=== PATIENT | male | born 1985 | race African-American/Black ===

== ENCOUNTER 2021-03-25 18:42 | Emergency (ER) | payer OTHER, SELFPAY ==
--- NOTE | ~2021-03-25 | CT_ITS ---
Indication: Fall EXAMINATION: CT brain, CT cervical spine. Axial imaging with coronal and sagittal reformatted images. Radiation dose [address] brain; Axial imaging with coronal and sagittal reformatted images. The solorio-white matter is within normal limits. There is no midline shift or mass effect or hemorrhage. The basilar cisterns appear patent. The posterior fossa is grossly within normal limits. No fracture on the bone windows. CT cervical spine; Limitation from body habitus and artifact. No fracture or dislocation is seen. CT/CT head/brain wo con IMPRESSION: Negative acute noncontrast CT of the brain. No fracture or dislocation of the cervical spine.
--- NOTE | ~2021-03-25 | CT_ITS ---
Indication: Fall EXAMINATION: CT brain, CT cervical spine. Axial imaging with coronal and sagittal reformatted images. Radiation dose [address] brain; Axial imaging with coronal and sagittal reformatted images. The solorio-white matter is within normal limits. There is no midline shift or mass effect or hemorrhage. The basilar cisterns appear patent. The posterior fossa is grossly within normal limits. No fracture on the bone windows. CT cervical spine; Limitation from body habitus and artifact. No fracture or dislocation is seen. CT/CT cervical spine wo con IMPRESSION: Negative acute noncontrast CT of the brain. No fracture or dislocation of the cervical spine.
[2021-03-25 19:25] VITALS: BP 139/72; PULSE 75; RESP 18; TEMP 36.2; O2SAT 94; BMI 39.8
--- NOTE | 2021-03-25 21:15 | ED.GENADULT ---
HPI - General Adult General Chief complaint: Fall Stated complaint: Fell on head Time Seen by Provider: 03/25/21 20:07 Source: patient Mode of arrival: ambulatory Limitations: no limitations History of Present Illness HPI narrative: Patient presents to ED for headache after falling and hitting tub. Patient states he was showering & slipped and hit his head on the tub while falling to the ground. Patient does not remember if he passed out but does states he remember waking up. He denies feeling dizzy, having any chest pain, or headache, or abdominal pain before falling. Patient states he was in the shower and slipped. Related Data Previous Rx's Medication Instructions Recorded naproxen 500 mg tablet 500 mg PO BID PRN #20 tab 03/25/21 Allergies Allergy/AdvReac Type Severity Reaction Status Date / Time shellfish derived Allergy Anaphylaxis Verified 03/25/21 19:32 Review of Systems Constitutional: Constitutional: Reports as per HPI, Reports no additional constitutional complaints and Reports headache(s) Eyes: Eyes: Reports as per HPI and Reports no additional eye complaints ENT: Reports system reviewed and no additional complaints, except as documented, Reports as per HPI and Reports headache(s) Cardiovascular: Cardiovascular: Reports as per HPI and Reports no additional cardiovascular complaints Respiratory: Respiratory: Reports as per HPI and Reports no additional respiratory complaints Gastrointestinal: Gastrointestinal: Reports as per HPI and Reports no additional gastrointestinal complaints Genitourinary: Genitourinary: Reports no additional male genitourinary complaints and Reports as per HPI Musculoskeletal: Musculoskeletal: Reports no additional musculoskeletal complaints and Reports as per HPI Integumentary/Breasts: Skin/Breast: Reports system reviewed and no additional complaints, except as docu and Reports as per HPI Neurologic: Reports system reviewed and no additional complaints, except as documented, Reports as per HPI and Reports headache(s) Psychiatric: Psychiatric: Reports no additional psychiatric complaints and Reports as per HPI [facility] Past Medical History Medical History (Updated 03/25/21 @ 21:19 by TRIXIE Benito) Asthma Pre-diabetes Social History Social History Advance Directives: No Advance Directives Information Provided: Yes Physical Exam Vital Signs: Vital Signs: Last Vital Signs Temp 97.2 F 03/25/21 19:25 Pulse 75 03/25/21 19:25 Resp 18 03/25/21 19:25 BP 139/72 03/25/21 19:25 Pulse Ox 94 03/25/21 19:25 Body Mass Index 39.8 Const: General: cooperative, healthy appearing, comfortable, no acute distress, well developed, alert, awake and Physically active Orientation/consciousness: patient oriented x3 HENMT: Head: Yes normal to inspection, Yes No palpable skull fracture present, Yes normocephalic, Yes atraumatic, No Acrocyanosis present, No Lorenzo's sign, No cranial bruits, No hematoma, No laceration, No raccoon eyes, No scalp lesion, Yes scalp tenderness (Right parietal), No Temporal artery tenderness present and No periorbital ecchymosis Eyes: General: appearance normal, both eyes and all related structures Neck: Neck: Yes normal visual inspection, Yes full ROM, Yes no lymphadenopathy, Yes no meningeal signs, Yes trachea midline, Yes supple and Yes tender Chest: Chest palpation & inspection: normal inspection of the chest and normal palpation of entire chest wall Resp: Effort & Inspection: normal respiratory effort and able to speak in complete sentences Auscultation: clear to auscultation bilaterally Cardio: Jugular venous distension: no JVD Heart sounds: S1 normal heart sound present and S2 normal heart sound present GI: Inspection: Yes normal to inspection and No abdominal wall ecchymosis Palpation (GI): Soft to palpation, not firm, nontender, no guarding and not rigid : General: No CVA tenderness and Yes no CVA tenderness Back/Spine/Pelvis: Back: no CVA tenderness, No CVA tenderness and No back tenderness Skin: General skin exam: no rashes or lesions noted and elasticity normal Neuro: General: patient oriented x3, no meningeal signs and CN's II-XI intact bilaterally Cranial nerves: Yes CN's II-XII intact bilaterally Extrem: General: Yes normal to inspection and Yes full ROM Psych: Appearance: grossly normal, well kempt and not disheveled Course Course Course Narrative: Patient recent for imaging. Reevaluation(s) Reevaluation #1: Head CT & cervical spine came back normal. Patient is safe for discharge Time: 21:18 Medical Decision Making MDM Narrative Medical decision making narrative: Fall Discharge Plan Discharge Clinical Impression: Fall Patient Disposition: Home, Self-Care Instructions: Head Injury (ED) Additional Instructions: Return to the ED for any nausea, vomiting, bleeding or clear fluid from ears/nose, dizziness, chest pain, shortness of breath, abdominal pain, rectal bleeding, vomiting blood, or any other concerning symptoms. Please follow up with CPP Prescriptions: New naproxen 500 mg tablet 500 mg PO BID PRN (Reason: pain) Qty: 20 RF: 0 Stand Alone Forms: Work/School Release Interventions: ED Discharge Assessment Last Done: 03/25/21 21:25 Discharge Date/Time: 03/25/21 21:30 Print Language: [place]
== END 2021-03-25 21:30 | disposition home or self-care (01) ==
PROVIDERS: Emergency Provider Emergency Medicine; PCP Internal Medicine
DX: Z04.3 Encounter for examination and observation following other accident (principal); Z91.81 History of falling
CPT/HCPCS: 70450; 72125; 99283; 99284

== ENCOUNTER → 2021-07-15 11:23 | Outpatient (BNVA) | payer OTHER, SELFPAY | PROVIDERS: PCP Internal Medicine; Visit Provider Physician Assistant | DX: S39.012A Strain of muscle, fascia and tendon of lower back, initial encounter (principal); X50.0XXA Overexertion from strenuous movement or load, initial encounter | CPT/HCPCS: 99203 ==

== ENCOUNTER → 2021-07-20 14:17 | Outpatient (BNVA) | payer OTHER, SELFPAY | PROVIDERS: PCP Internal Medicine; Visit Provider Physician Assistant Medical | DX: S33.9XXA Sprain of unspecified parts of lumbar spine and pelvis, initial encounter (principal); X50.0XXA Overexertion from strenuous movement or load, initial encounter | CPT/HCPCS: 72100; 99213 ==

== ENCOUNTER 2021-07-29 12:53 | Outpatient (RCR) | payer OTHER, SELFPAY ==
--- NOTE | 2021-07-29 14:01 | MHC.PT.EP ---
[facility] [place] Office [place] Office [place] Office [address]han [address] [phone] F: [phone] F: [phone] F: [phone] F: [phone] Physical Therapy Plan of Care Date of Evaluation: Date of Surgery: n/a Diagnosis: LS strain with paraspinal spasm Assessment: Patient is a 35 year old R handed male who presents with s/s consistent with lumbar strain. He works with daily job demands including bending, lifting, carrying. Patient past medical history is unremarkable, aside from possible seizure (non-conclusive) 2 years ago. Current impairments include pain, ROM, strength, safety, independence, activity tolerance and functional mobility. Functional limitations include decreased ability to walk, stand, transfer, negotiate stairs, bend, lift, carry, sit, sleep, and perform weight bearing activities.. Patient is motivated with good rehab potential. Skilled PT will address impairments and functional limitations in order to achieve goals. Frequency and Duration: The patient will be seen 2x/week for 5 weeks Short Term Goals: I with HEP - 2 weeks Able to tolerate laying supine and on side - 3 weeks Detention Goals: Oswestry 10% or less - 5 weeks Pain free/safe return to all work duties - 5 weeks AROM rotation 75% and pain free b/l - 4 weeks Treatment Plan: Modalities to reduce pain, spasms and effusion. Manual therapy to restore motion and function. Therapeutic exercise to improve strength and flexibility. Neuromuscular re-education for posture and balance. Therapeutic activities to return to functional activities of daily living. Electronically signed by: Gatito Frank, PT Please sign and return to therapist. Thank you for your referral.
--- NOTE | 2021-12-16 08:18 | MHC.PT.DC ---
[facility] [place] Office [place] Office [place] Office [address] [facility] [phone] F: [phone] F: [phone] F: [phone] F: [phone] Physical Therapy Discharge Report Diagnosis: LS strain with paraspinal spasm Date of Surgery: n/a Date of Evaluation: 07/29/21 Date of Discharge: 07/29/21 Treatments to Date: 1 Cancellations to Date: No Shows to Date: Discharge Status: Patient Elected to Stop Discharge Summary: Pt returned to work and did not return to PT after his evaluation. Patient is a 35 year old R handed male who presents with s/s consistent with lumbar strain. He works with daily job demands including bending, lifting, carrying. Patient past medical history is unremarkable, aside from possible seizure (non-conclusive) 2 years ago. Current impairments include pain, ROM, strength, safety, independence, activity tolerance and functional mobility. Functional limitations include decreased ability to walk, stand, transfer, negotiate stairs, bend, lift, carry, sit, sleep, and perform weight bearing activities.. Patient is motivated with good rehab potential. Skilled PT will address impairments and functional limitations in order to achieve goals. Electronically signed by: Gatito Frank, PT Please sign and return to therapist. Thank you for your referral.
== END 2021-12-16 08:18 | disposition home or self-care (01) ==
LOC: HO.PTCHIC 12:53
PROVIDERS: PCP Internal Medicine; Visit Provider Physician Assistant Medical
DX: M54.50 Low back pain, unspecified (principal); M62.830 Muscle spasm of back
CPT/HCPCS: 97014; 97110; 97161

== ENCOUNTER → 2021-08-03 14:41 | Outpatient (BNVA) | payer OTHER, SELFPAY | PROVIDERS: PCP Internal Medicine; Visit Provider Physician Assistant Medical | DX: S33.9XXA Sprain of unspecified parts of lumbar spine and pelvis, initial encounter (principal); X58.XXXA Exposure to other specified factors, initial encounter | CPT/HCPCS: 99213 ==

== ENCOUNTER → 2021-08-17 09:46 | Outpatient (BNVA) | payer OTHER, SELFPAY | PROVIDERS: PCP Internal Medicine; Visit Provider Physician Assistant Medical | DX: S39.012D Strain of muscle, fascia and tendon of lower back, subsequent encounter (principal); X58.XXXD Exposure to other specified factors, subsequent encounter | CPT/HCPCS: 99213 ==

== ENCOUNTER → 2021-08-27 10:55 | Outpatient (BNVA) | payer OTHER, SELFPAY | PROVIDERS: PCP Internal Medicine; Visit Provider Physician Assistant | DX: S39.012D Strain of muscle, fascia and tendon of lower back, subsequent encounter (principal); X58.XXXD Exposure to other specified factors, subsequent encounter | CPT/HCPCS: 99213 ==

== ENCOUNTER → 2021-09-07 11:21 | Outpatient (BNVA) | payer OTHER, SELFPAY | PROVIDERS: PCP Internal Medicine; Visit Provider Physician Assistant Medical | DX: S39.012D Strain of muscle, fascia and tendon of lower back, subsequent encounter (principal); X58.XXXD Exposure to other specified factors, subsequent encounter | CPT/HCPCS: 99213 ==

== ENCOUNTER 2023-11-11 02:08 | Emergency (ER) | payer BC, SELFPAY ==
--- NOTE | 2023-11-11 | ECG_ITS ---
Test Reason : CHEST PAIN Blood Pressure : / mmHG Vent. Rate : 069 BPM Atrial Rate : 069 BPM P-R Int : 172 ms QRS Dur : 088 ms QT Int : 378 ms P-R-T Axes : 057 077 -01 degrees QTc Int : 405 ms Normal sinus rhythm Abnormal QRS-T angle, consider primary T wave abnormality Abnormal ECG No previous ECGs available Referred By: Generic ED Physician Electronically Signed By:Papito Lynn
--- NOTE | ~2023-11-11 | XR_ITS ---
EXAMINATION: XR CHEST CLINICAL INFORMATION: Chest pain COMPARISON: None available. TECHNIQUE: 2 views of the chest were obtained. FINDINGS: The lungs are clear with no focal consolidation. No evidence of pneumothorax, pulmonary edema, or pleural effusions. The cardiomediastinal silhouette is unremarkable. No acute osseous findings. XR/XR chest 2V IMPRESSION: No acute cardiopulmonary findings.
--- NOTE | 2023-11-11 02:16 | MHC.EDTECH ---
patient ekg taken at 0211 and was read by Provider stacy .
[2023-11-11 02:18] VITALS: BP 150/81; PULSE 73; RESP 18; TEMP 36.8; O2SAT 99; BMI 41.5
[2023-11-11 02:47] LABS: MANUAL DIFF FLAG NO
[2023-11-11 02:48] LABS: Basophils Percent Auto 0.7 % (0-2); Eosinophils Absolute Auto 0.3 X10*3/uL (0.0-0.4); Eosinophils Percent Auto 5.3 % (0-4); Hematocrit 44.2 % (42.0-52.0); Hemoglobin 15.1 g/dl (14.0-18.0); Imm Gran Abs Auto 0.01 X10*3/uL (0.00-0.03); Imm Gran Pct Auto 0.2 % (0.0-0.4); Lymphocytes Absolute Auto 2.1 X10*3/uL (1.2-4.9); Lymphocytes Percent Auto 37.6 % (20-40); Mean Corpuscular HGB Conc 34.2 g/dl (31.0-36.0); Mean Corpuscular Hemoglobin 30.1 pg (27.0-33.0); Mean Corpuscular Volume 88.2 fL (80.0-98.0); Mean Platelet Volume 10.1 fL (9.4-12.4); Monocytes Absolute Auto 0.7 X10*3/uL (0.1-1.2); Monocytes Percent Auto 12.5 % (2-11); Neutrophils Absolute Auto 2.5 x10*3/uL (2.0-8.3); Neutrophils Percent Auto 43.7 % (45-73); Platelet Count 186 X10*3/uL (160-400); Red Blood Count 5.01 X10*6/uL (4.60-5.80); Red Cell Distribution Width 13.5 % (11.0-16.0); White Blood Count 5.7 X10*3/uL (4.8-10.8)
[2023-11-11 03:10] LABS: Alanine Aminotransferase 17 U/L (0-40); Albumin Level 3.7 g/dL (3.5-5.0); Alkaline Phosphatase 52 U/L (39-117); Anion Gap 11 (12-20); Aspartate Amino Transferase 15 U/L (5-37); Bilirubin Total 0.2 mg/dL (0.0-1.0); Blood Urea Nitrogen 18 mg/dL (9-16); Calcium 8.5 mg/dL (8.4-10.2); Carbon Dioxide 21 mmol/L (22-29); Chloride 110 mmol/L (96-108); Creatinine Clr Calc Pharmacy 134.9; Estimated Glomerular Filt Rate > 60; Glucose Random 127 mg/dL (60-115); Potassium 3.5 mmol/L (3.3-5.1); Sodium 138 mmol/L (135-145); Total Protein 6.8 g/dL (6.5-8.0)
[2023-11-11 03:11] LABS: Troponin-I High Sensitivity < 2.7 ng/L (<3.5-35.0)
[2023-11-11 04:32] VITALS: BP 140/75; PULSE 68; RESP 16; TEMP 36.6; O2SAT 97
--- NOTE | 2023-11-11 05:18 | ED_ITS ---
HPI - Chest Pain General Chief Complaint: Chest Pain Stated Complaint: Chest Pain Time Seen by Provider: 11/11/23 05:14 Source: patient Mode of arrival: ambulatory Limitations: no limitations History of Present Illness HPI narrative: Patient comes to the emergency room complaining of bilateral chest pain for couple of days. Patient states that about 2 days ago, patient was working out in the gym, lifting 135 lb overhead repeatedly. Patient denies shortness of breath Related Data Previous Rx's Medication Instructions Recorded naproxen 500 mg tablet 500 mg PO BID PRN pain #20 tabs 03/25/21 Allergies Allergy/AdvReac Type Severity Reaction Status Date / Time shellfish derived Allergy Anaphylaxis Verified 11/11/23 02:18 Review of Systems 2 Review of Systems: Constitutional : No Weight loss, No Fever, No Chills, No Night Sweats, No Fatigue, No Malaise ENT/Mouth : No Hearing loss, No Ear Pain, No Nasal Congestion, No Sinus Pain, No Hoarseness, No sore throat, No Rhinorrhea, No Swallowing Difficulty Eyes: No Eye Pain, No Swelling, No Redness, No Foreign Body, No Discharge, No Vision Changes Cardiovascular : Complaining of chest wall pain, no deep/substernal Chest Pain, No SOB, No Dyspnea on Exertion, No Orthopnea, No Edema, No Palpitations Respiratory : No Cough, No Sputum, No Wheezing, No Smoke Exposure, No Dyspnea Gastrointestinal : No Nausea, No Vomiting, No Diarrhea, No Constipation, No abdominal Pain, No Hematochezia, No Melena Genitourinary : no irregular bleeding, No Dysuria, No Urinary Frequency, No Hematuria, No Urinary Incontinence, No Urgency, No Flank Pain, No Urinary Flow Changes, No Hesitancy Musculoskeletal : No joint pain, No Myalgias, No Joint Swelling Skin : No Skin Lesions, No rash Neuro : No Weakness, No Numbness, No Paresthesias, No Loss of Consciousness, No Dizziness, No Headache Psych : No Anxiety/Panic, No Depression, No SI/HI/AH/VH, No Social Issues, Heme/Lymph: No Bruising, No Bleeding,No Lymphadenopathy Endocrine : No Polyuria, No Polydipsia, No Temperature Intolerance PMFSH Past Medical History Medical History Pre-diabetes Asthma Social History Social History Smoked in Last 30 Days: Yes Use of substances other than those prescribed or required for medical reasons: Yes Substance Use Type: Marijuana Advance Directives: No Advance Directives Information Provided: No Physical Exam 2 Vital Signs: Vital Signs: Last Vital Signs Temp 98 F 11/11/23 04:32 Pulse 68 11/11/23 04:32 Resp 16 11/11/23 04:32 BP 140/75 H 11/11/23 04:32 Pulse Ox 97 11/11/23 04:32 O2 Del Method Room Air 11/11/23 04:32 BMI result Body Mass Index 41.5 Const: Other: Appearance: Alert. Oriented X3. No acute distress. Eyes: Pupils equal, round and reactive to light. ENT: Pharynx normal. Neck: Normal inspection. Neck supple. No lymph nodes noted. No crepitus CVS: Reproducible chest pain to palpation bilaterally, Normal heart rate and rhythm. Pulses normal. Normal S1 and S2 Respiratory: No respiratory distress. Breath sounds normal. No Wheezing. No rales Abdomen: Soft and nontender. No rigidity. No distention. Skin: Skin warm and dry. Normal skin color. Normal skin turgor. Extremities: No lower extremity edema. No Lacerations. No Rash Neuro: Oriented X 3. No motor deficit. No sensory deficit. Moving all extremities. No slurred speech. CN 2 through 12 grossly intact Psych: calm, cooperative, normal affect Medical Decision Making Medical Decision Making [facility] Narrative: -my interpretation of EKG: Normal sinus rhythm, heart rate 69, no ST segment depression or elevation, nonspecific T-wave inversion in lead 3, QTC 405 -my interpretation of labs: Normal hematology chemistry and troponin -my interpretation of chest x-ray: No pneumonia or fractured ribs -I discussed with the patient, source of pain likely musculoskeletal Differential Diagnosis Differential Diagnoses: The differential diagnosis associated with the presentation includes (ACS, musculoskeletal pain, pleurisy) Admission/Observation Consideration of admission/observation: Escalation of care including admission/observation considered (Given patient's symptoms, admission was considered) Lab Data [facility] Lab Attestation statement: I reviewed the patient's lab results. 11/11/23 02:42 11/11/23 02:42 Labs: Lab Results 11/11/23 Range/Units 02:42 WBC 5.7 (4.8-10.8) X10*3/uL RBC 5.01 (4.60-5.80) X10*6/uL Hgb 15.1 (14.0-18.0) g/dl Hct 44.2 (42.0-52.0) % MCV 88.2 (80.0-98.0) fL MCH 30.1 (27.0-33.0) pg MCHC 34.2 (31.0-36.0) g/dl RDW 13.5 (11.0-16.0) % Plt Count 186 (160-400) X10*3/uL MPV 10.1 (9.4-12.4) fL Immature Gran % (Auto) 0.2 (0.0-0.4) % Neut % (Auto) 43.7 L (45-73) % Lymph % (Auto) 37.6 (20-40) % [place] % (Auto) 12.5 H (2-11) % Eos % (Auto) 5.3 H (0-4) % Baso % (Auto) 0.7 (0-2) % Lymph # (Auto) 2.1 (1.2-4.9) X10*3/uL [place] # (Auto) 0.7 (0.1-1.2) X10*3/uL Eos # (Auto) 0.3 (0.0-0.4) X10*3/uL Baso # (Auto) 0.0 (0.0-0.2) X10*3/uL Abs Immat Gran (auto) 0.01 (0.00-0.03) X10*3/uL Absolute Neuts (auto) 2.5 (2.0-8.3) x10*3/uL Absolute Nucleated RBC 0.000 (0.0-0.012) X10*3/uL Nucleated RBC % (auto) 0.0 (0.0-0.2) /100WBC Sodium 138 (135-145) mmol/L Potassium 3.5 (3.3-5.1) mmol/L Chloride 110 H (96-108) mmol/L Carbon Dioxide 21 L (22-29) mmol/L Anion Gap 11 L (12-20) BUN 18 H (9-16) mg/dL Creatinine 0.93 (0.5-1.4) mg/dL Estim Creat Clear Calc 134.9 Estimated GFR > 60 Random Glucose 127 H (60-115) mg/dL Calcium 8.5 (8.4-10.2) mg/dL Total Bilirubin 0.2 (0.0-1.0) mg/dL AST 15 (5-37) U/L ALT 17 (0-40) U/L Alkaline Phosphatase 52 (39-117) U/L Troponin I High Sens < 2.7 (<3.5-35.0) ng/L Total Protein 6.8 (6.5-8.0) g/dL Albumin 3.7 (3.5-5.0) g/dL Independent Interpretation I performed an independent interpretation of an: EKG and Plain X-Ray Radiology Impression Discussion of test interpretation with radiology: I have reviewed the radiologist's reading. Radiologist Impression: FINDINGS: The lungs are clear with no focal consolidation. No evidence of pneumothorax, pulmonary edema, or pleural effusions. The cardiomediastinal silhouette is unremarkable. No acute osseous findings. XR/XR chest 2V IMPRESSION: No acute cardiopulmonary findings. Critical Care Time Critical Care Time Critical Care Time: Yes Total Critical Care Time: 35 Attestation: I have personally provided critical care time. Time includes review of lab data, radiology results, discussion with consultants, and monitoring for potential decompensation. Intervention performed as documented. Discharge Plan Discharge Clinical Impression: Atypical chest pain Patient Disposition: Home, Self-Care Instructions: Chest Pain (ED), Chest Wall Pain (ED) Additional Instructions: Please follow-up with your primary care physician tomorrow. If you have any worsening or new symptoms, please return to the emergency room or call 911 Prescriptions: No Action naproxen 500 mg tablet 500 mg PO BID PRN (Reason: pain) Qty: 20 0RF
[2023-11-11 05:38] VITALS: BP 140/75; PULSE 71; RESP 20; TEMP 36.9; O2SAT 100
== END 2023-11-11 15:14 | disposition home or self-care (01) ==
PROVIDERS: Emergency Provider Emergency Medicine
DX: R07.89 Other chest pain (principal)
CPT/HCPCS: 36415; 71046; 80053; 84484; 85025; 93005; 99283; 99285

== ENCOUNTER → 2023-11-11 02:11 | Outpatient (BNV) | payer BC, SELFPAY | PROVIDERS: Emergency Provider Emergency Medicine; Visit Provider Internal Medicine Cardiovascular Disease | DX: R94.31 Abnormal electrocardiogram [ECG] [EKG] (principal) | CPT/HCPCS: 93010 ==

== ENCOUNTER 2024-02-01 21:30 | Emergency (ER) | payer BC, SELFPAY ==
--- NOTE | 2024-02-01 21:32 | ECG_ITS ---
Test Reason : CHEST PAIN Blood Pressure : / mmHG Vent. Rate : 072 BPM Atrial Rate : 072 BPM P-R Int : 174 ms QRS Dur : 086 ms QT Int : 380 ms P-R-T Axes : 040 073 012 degrees QTc Int : 416 ms Normal sinus rhythm Normal ECG When compared with ECG of 11-NOV-2023 02:11, No significant change was found Referred By: Generic ED Physician Electronically Signed By:Papito Lynn
[2024-02-01 21:33] VITALS: BP 146/85; PULSE 86; RESP 18; TEMP 36.7; O2SAT 98; BMI 41.5
[2024-02-01 22:11] LABS: MANUAL DIFF FLAG NO
[2024-02-01 22:12] LABS: Basophils Percent Auto 0.8 % (0-2); Eosinophils Absolute Auto 0.2 X10*3/uL (0.0-0.4); Eosinophils Percent Auto 3.6 % (0-4); Hematocrit 45.5 % (42.0-52.0); Hemoglobin 15.6 g/dl (14.0-18.0); Imm Gran Abs Auto 0.01 X10*3/uL (0.00-0.03); Imm Gran Pct Auto 0.2 % (0.0-0.4); Lymphocytes Percent Auto 38.9 % (20-40); Mean Corpuscular HGB Conc 34.3 g/dl (31.0-36.0); Mean Corpuscular Volume 87.5 fL (80.0-98.0); Mean Platelet Volume 10.4 fL (9.4-12.4); Monocytes Absolute Auto 0.5 X10*3/uL (0.1-1.2); Monocytes Percent Auto 10.3 % (2-11); Neutrophils Absolute Auto 2.4 x10*3/uL (2.0-8.3); Neutrophils Percent Auto 46.2 % (45-73); Platelet Count 186 X10*3/uL (160-400); Red Cell Distribution Width 13.2 % (11.0-16.0); White Blood Count 5.2 X10*3/uL (4.8-10.8)
[2024-02-01 22:27] LABS: Anion Gap 13 (12-20); Blood Urea Nitrogen 17 mg/dL (9-16); Calcium 8.7 mg/dL (8.4-10.2); Carbon Dioxide 23 mmol/L (22-29); Chloride 107 mmol/L (96-108); Creatinine Clr Calc Pharmacy 141.2; Estimated Glomerular Filt Rate > 60; Glucose Random 89 mg/dL (60-115); Potassium 3.9 mmol/L (3.3-5.1); Sodium 139 mmol/L (135-145)
[2024-02-01 22:43] LABS: Troponin-I High Sensitivity < 2.7 ng/L (<3.5-35.0)
[2024-02-01 22:50] VITALS: BP 130/80; PULSE 67; RESP 17; TEMP 36.6; O2SAT 97
--- NOTE | 2024-02-01 23:17 | ED.CHESTPAIN ---
HPI - Chest Pain General Chief Complaint: Dizziness Stated Complaint: Chest pain, thinks its anxiety Time Seen by Provider: 02/01/24 22:20 Source: patient Mode of arrival: ambulatory History of Present Illness ED Provider: Dr Mcfarlane HPI narrative: 38-year-old male who presents with dizziness with spots in his vision while at work, mild nausea. He denies any significant of cardiac disease and denies any history of diabetes/hypertension and states that this has happened previously but he has not followed up with his primary care doctor for anxiety which he thinks that this is. At the time of my interview patient states that his symptoms have resolved and he is feeling better. He denies any recent cough/fever/chills or sick contacts. Related Data Previous Rx's ?Medication ?Instructions ?Recorded naproxen 500 mg tablet 500 mg PO BID PRN pain #20 tabs 03/25/21 hydroxyzine HCl 25 mg tablet 25 mg PO BID PRN anxiety #7 tabs 02/01/24 Allergies Allergy/AdvReac Type Severity Reaction Status Date / Time shellfish derived Allergy Anaphylaxis Verified 02/01/24 21:38 Review of Systems Review of Systems: Pertinent positives and negatives as stated in HPI [facility] Past Medical History Source: nursing notes reviewed Medical History Pre-diabetes Asthma Social History Social History Smoked in Last 30 Days: No Substance Use Type: Marijuana Advance Directives: No Advance Directives Information Provided: Yes Do you have a plan to hurt others: No Plan Physical Exam Vital Signs: Vital Signs: Last Vital Signs Temp 98 F 02/01/24 22:50 Pulse 67 02/01/24 22:50 Resp 17 02/01/24 22:50 BP 130/80 02/01/24 22:50 Pulse Ox 97 02/01/24 22:50 O2 Del Method Room Air 02/01/24 22:50 BMI result Body Mass Index 41.5 VITAL SIGNS: Reviewed. GENERAL: Elevated BMI, Well developed, well nourished, in no acute distress. HEAD: Normocephalic/atraumatic EYES: PERRLA, EOMI EARS: Ext canals without abnormality NOSE: Nares patent bilateral OROPHARYNX: no oral lesions noted, posterior pharynx clear NECK: Supple, no adenopathy LUNGS: Normal breath sounds. No adventitious sounds or accessory muscle use. SpO2<97> CARDIOVASCULAR: Regular rate and rhythm without noted murmurs ABDOMEN: Soft, non-tender, non-distended with bowel sounds. MUSCULOSKELETAL: No tenderness, deformities, or effusions noted on gross inspection. EXTREMITIES: No cyanosis, clubbing or edema. SKIN: Inspection of the skin reveals no rashes NEUROLOGIC: Alert and oriented x 4. Strength and sensation to light touch were grossly intact x 4, no facial asymmetry, no pronator drift, cranial nerves 2-12 are grossly intact. Medical Decision Making Medical Decision Making [facility] Narrative: 38-year-old male with history and clinical presentation, DDX: Anxiety, low clinical suspicion of cardiopulmonary etiology, possible acid reflux/GERD I reviewed all investigations and hematologic indices are without any gross derangements. Chemistry indices are without MERON/electrolyte derangements and high sensitivity troponin is undetectable. My interpretation is that this is likely anxiety, patient will be discharged with a prescription for hydroxyzine and instructed to follow-up with his primary care doctor. Differential Diagnosis Differential Diagnoses: The differential diagnosis associated with the presentation includes Please see the discussion above Admission/Observation Consideration of admission/observation: Escalation of care including admission/observation considered Please see the discussion above Lab Data 02/01/24 22:03 02/01/24 22:03 Labs: Lab Results 02/01/24 Range/Units 22:03 WBC 5.2 (4.8-10.8) X10*3/uL RBC 5.20 (4.60-5.80) X10*6/uL Hgb 15.6 (14.0-18.0) g/dl Hct 45.5 (42.0-52.0) % MCV 87.5 (80.0-98.0) fL MCH 30.0 (27.0-33.0) pg MCHC 34.3 (31.0-36.0) g/dl RDW 13.2 (11.0-16.0) % Plt Count 186 (160-400) X10*3/uL MPV 10.4 (9.4-12.4) fL Immature Gran % (Auto) 0.2 (0.0-0.4) % Neut % (Auto) 46.2 (45-73) % Lymph % (Auto) 38.9 (20-40) % [place] % (Auto) 10.3 (2-11) % Eos % (Auto) 3.6 (0-4) % Baso % (Auto) 0.8 (0-2) % Lymph # (Auto) 2.0 (1.2-4.9) X10*3/uL [place] # (Auto) 0.5 (0.1-1.2) X10*3/uL Eos # (Auto) 0.2 (0.0-0.4) X10*3/uL Baso # (Auto) 0.0 (0.0-0.2) X10*3/uL Abs Immat Gran (auto) 0.01 (0.00-0.03) X10*3/uL Absolute Neuts (auto) 2.4 (2.0-8.3) x10*3/uL Absolute Nucleated RBC 0.000 (0.0-0.012) X10*3/uL Nucleated RBC % (auto) 0.0 (0.0-0.2) /100WBC Sodium 139 (135-145) mmol/L Potassium 3.9 (3.3-5.1) mmol/L Chloride 107 (96-108) mmol/L Carbon Dioxide 23 (22-29) mmol/L Anion Gap 13 (12-20) BUN 17 H (9-16) mg/dL Creatinine 0.88 (0.5-1.4) mg/dL Estim Creat Clear Calc 141.2 Estimated GFR > 60 Random Glucose 89 (60-115) mg/dL Calcium 8.7 (8.4-10.2) mg/dL Troponin I High Sens < 2.7 (<3.5-35.0) ng/L Independent Interpretation I performed an independent interpretation of an: EKG Interpretation: Normal sinus rhythm, HR-72, no STEMI, NE/QRS/QTC is within normal limits and there are no acute changes when compared to prior EKG from October/2023. External Record Review External record reviewed: Outpatient record and Prior outpatient labs Critical Care Time Critical Care Time Critical Care Time: Yes Total Critical Care Time: 30 Attestation: I personally attest to this time spent taking care of the patient. Discharge Plan Discharge Clinical Impression: Atypical chest pain, Anxiety Patient Disposition: Home, Self-Care Instructions: Anxiety (ED) Additional Instructions: 1. Take medication as prescribed. 2. Follow-up with the primary care doctor at your earliest convenience. Return to the ER for any worsening symptoms. Prescriptions: New hydroxyzine HCl 25 mg tablet 25 mg PO BID PRN (Reason: anxiety) Qty: 7 0RF No Action naproxen 500 mg tablet 500 mg PO BID PRN (Reason: pain) Qty: 20 0RF Print Language: Czech
[2024-02-01 23:47] VITALS: BP 130/80; PULSE 67; RESP 17; TEMP 36.6; O2SAT 97
== END 2024-02-01 23:47 | disposition home or self-care (01) ==
PROVIDERS: Emergency Provider Student in an Organized Health Care Education/Training Program
DX: R07.89 Other chest pain (principal); F41.9 Anxiety disorder, unspecified; R42 Dizziness and giddiness; R11.0 Nausea; F12.90 Cannabis use, unspecified, uncomplicated; Z79.899 Other long term (current) drug therapy
CPT/HCPCS: 36415; 80048; 84484; 85025; 93005; 99284

== ENCOUNTER → 2024-02-01 21:32 | Outpatient (BNV) | payer BC, SELFPAY | PROVIDERS: Emergency Provider Student in an Organized Health Care Education/Training Program; Visit Provider Internal Medicine Cardiovascular Disease | DX: R07.9 Chest pain, unspecified (principal) | CPT/HCPCS: 93010 ==

== ENCOUNTER 2024-02-20 16:34 | Emergency (ER) | payer BC, SELFPAY | END 2024-02-20 18:03 | disposition left against medical advice (07) | PROVIDERS: Emergency Provider Emergency Medicine | DX: M25.559 Pain in unspecified hip (principal) ==

== ENCOUNTER 2024-02-20 20:00 | Emergency (ER) | payer BC, SELFPAY ==
--- NOTE | ~2024-02-20 | XR_ITS ---
EXAMINATION: XR HIP, LEFT CLINICAL INFORMATION: Pain. COMPARISON: None available. TECHNIQUE: AP and frog-leg lateral views of the left hip are submitted, together with frontal views of the pelvis. FINDINGS: No acute fracture. A tiny accessory ossification center or chronic avulsion fragment is seen lateral to the left acetabular roof. Alignment is anatomic. The bilateral hip joint spaces are well-maintained. The sacroiliac joints are symmetric and well-maintained. The pubic symphysis is intact. Soft tissues are unremarkable. XR/XR hip LT w PEL1V IMPRESSION: Unremarkable pelvic and left hip radiographs.
[2024-02-20 20:02] VITALS: BP 185/65; PULSE 80; RESP 20; TEMP 37.2; O2SAT 95; BMI 41.5
--- NOTE | 2024-02-21 00:27 | ED.GENADULT ---
HPI - General Adult General Chief complaint: Extremity Injury, Lower Stated complaint: hip pain, no injury Time Seen by Provider: 02/20/24 23:52 History of Present Illness ED Provider: Yosvany Hair PA-C HPI narrative: 38-year-old male with no past medical history presents to the ED for left hip pain that is worse on movement that began this morning. Patient states pain is worse on movement. Patient denies abdominal pain, testicular pain, dysuria, hematuria, flank pain, fever, chills, left thigh pain, left thigh/leg swelling, calf pain, redness, bluish black discoloration, or any recent trauma. Patient denies any recent travel or recent surgery. Patient denies being on estrogen hormonal use. Patient denies any history of blood clots Related Data Previous Rx's ?Medication ?Instructions ?Recorded naproxen 500 mg tablet 500 mg PO BID PRN pain #20 tabs 03/25/21 hydroxyzine HCl 25 mg tablet 25 mg PO BID PRN anxiety #7 tabs 02/01/24 cyclobenzaprine 10 mg tablet 10 mg PO TID PRN muscle spasm 5 02/21/24 days #15 tabs naproxen 500 mg tablet 500 mg PO BID PRN pain 7 days #14 02/21/24 tabs Allergies Allergy/AdvReac Type Severity Reaction Status Date / Time shellfish derived Allergy Anaphylaxis Verified 02/20/24 20:04 Review of Systems Review of Systems: left hip apin Yes all other systems are reviewed and are negative [facility] Past Medical History Medical History Pre-diabetes Asthma Social History Social History Substance Use Type: Marijuana Advance Directives: No Advance Directives Information Provided: Yes Do you have a plan to hurt others: No Plan Physical Exam ED Vital Signs: Vital Signs - 24 hr 02/20/24 20:02 02/21/24 00:40 02/21/24 01:23 Temperature 98.9 F 97.9 F 97.9 F Pulse Rate 80 69 69 Respiratory Rate 20 16 16 Blood Pressure 185/65 H 130/76 130/76 Pulse Oximetry 95 97 97 Oxygen Delivery Method Room Air Room Air Room Air BMI result Body Mass Index 41.5 Const General: cooperative, healthy appearing, comfortable, no acute distress, well developed, alert and awake Orientation/consciousness: patient oriented x3 [facility] Head: Yes normal to inspection, Yes No palpable skull fracture present, Yes normocephalic, Yes atraumatic and No abrasion Eyes General: appearance normal, both eyes and all related structures Neck Neck: Yes normal visual inspection, Yes full ROM, Yes no lymphadenopathy, Yes no meningeal signs, Yes trachea midline, Yes supple, No anterior neck swelling and No tender Chest Chest palpation & inspection: normal inspection of the chest and normal palpation of entire chest wall Resp Effort & Inspection: normal respiratory effort and able to speak in complete sentences Auscultation: clear to auscultation bilaterally Cardio Jugular venous distension: no JVD Heart sounds: S1 normal heart sound present and S2 normal heart sound present GI Inspection: Yes normal to inspection Palpation (GI): Soft to palpation, not firm, nontender, no guarding and not rigid General: Yes no CVA tenderness Back/Spine/Pelvis Back: no CVA tenderness and No back tenderness Skin General skin exam: no rashes or lesions noted, elasticity normal and turgor normal Neuro General: patient oriented x3, gait normal, tone normal, moves all extremities, Normal light touch and pain sensation, no meningeal signs, no focal motor deficits, CN's II-XI intact bilaterally and normal sensation to monofilament Extrem General: Yes normal to inspection, Yes full ROM and Yes capillary refill normal Upper/lower leg/hip images: 1. Positive for tenderness on palpation. Negative for crepitus, ecchymosis, or deformity. Femoral pulses intact. Rest of extremity normal. Negative for thigh pain, thigh swelling, palpable mass on thigh, leg swelling, calf pain, erythema of extremity, bluish black discoloration, crepitus, or deformity. Rest of extremity normal. Motor/neuro/vascular exam intact Psych Appearance: grossly normal, well kempt and not disheveled Medical Decision Making Medical Decision Making MDM Narrative: 38-year-old male with left hip pain without any trauma. X-ray normal. Patient denies any abdominal pain or genital symptoms. Patient denies any back pain. Patient denies any IV drug use. Patient denies any urinary/bowel incontinence. Not suspecting kidney stones, cauda equinus syndrome, epidural abscess, DVT, arterial occlusion, compartment syndrome, or cellulitis. Differential Diagnosis Differential Diagnoses: The differential diagnosis associated with the presentation includes (Hip strain) Admission/Observation Consideration of admission/observation: Escalation of care including admission/observation considered Independent Interpretation I performed an independent interpretation of an: Plain X-Ray Interpretation: [address] [address] XRay Report Signed Patient: Phil Riddle MR#: [id number] : 1985 Acct:[id number] Age/Sex: 38 / M ADM Date: 02/20/24 Loc: HO.ED Attending Dr: Ordering Physician: Generic ED Physician Date of Service: 02/20/24 Procedure(s): XR hip LT w PEL1V Accession Number(s): [id number] cc: Generic ED Physician; Physician,None ~ EXAMINATION: XR HIP, LEFT CLINICAL INFORMATION: Pain. COMPARISON: None available. TECHNIQUE: AP and frog-leg lateral views of the left hip are submitted, together with frontal views of the pelvis. FINDINGS: No acute fracture. A tiny accessory ossification center or chronic avulsion fragment is seen lateral to the left acetabular roof. Alignment is anatomic. The bilateral hip joint spaces are well-maintained. The sacroiliac joints are symmetric and well-maintained. The pubic symphysis is intact. Soft tissues are unremarkable. XR/XR hip LT w PEL1V IMPRESSION: Unremarkable pelvic and left hip radiographs. Dictated By: Christian Fay MD Signed By: <Electronically signed by Christian Fay MD in OV> 02/20/242140 DD/ 31 TD/TT: Leather Carver: LAWANDA Miles Historian Clinical information obtained from an independent historian. History obtained from or confirmed by: Other (Patient) External Record Review External record reviewed: Other (prior visits) Prescription Management I considered prescription management with: Pain Medication Discharge Plan Discharge Clinical Impression: Hip strain, Hip pain Patient Disposition: Home, Self-Care Instructions: Muscle Strain (ED), Groin Strain (ED), Hip Pain (ED) Additional Instructions: Recommend follow-up with primary care provider. Return to the ED immediately for any worsening hip pain, testicular pain, dysuria, hematuria, thigh pain, probable mass and thigh, leg swelling, calf pain, erythema, bluish black discoloration, numbness/tingling, paralysis, fever, chills, hotness, coldness, or any other concerning symptoms. FINDINGS: No acute fracture. A tiny accessory ossification center or chronic avulsion fragment is seen lateral to the left acetabular roof. Alignment is anatomic. The bilateral hip joint spaces are well-maintained. The sacroiliac joints are symmetric and well-maintained. The pubic symphysis is intact. Soft tissues are unremarkable. XR/XR hip LT w PEL1V IMPRESSION: Unremarkable pelvic and left hip radiographs. Prescriptions: New naproxen 500 mg tablet 500 mg PO BID PRN (Reason: pain) 7 Days Qty: 14 0RF cyclobenzaprine 10 mg tablet 10 mg PO TID PRN (Reason: muscle spasm) 5 Days Qty: 15 0RF Rx Instructions: side effect is drowsiness. Do not take at work or while driving No Action naproxen 500 mg tablet 500 mg PO BID PRN (Reason: pain) Qty: 20 0RF hydroxyzine HCl 25 mg tablet 25 mg PO BID PRN (Reason: anxiety) Qty: 7 0RF Stand Alone Forms: Work/School Release Interventions: ED Discharge Assessment Last Done: 02/21/24 01:23 Discharge Date/Time: 02/21/24 01:24 Print Language: Kazakh
[2024-02-21 00:40] VITALS: BP 130/76; PULSE 69; RESP 16; TEMP 36.6; O2SAT 97
[2024-02-21 01:23] VITALS: BP 130/76; PULSE 69; RESP 16; TEMP 36.6; O2SAT 97
== END 2024-02-21 01:24 | disposition home or self-care (01) ==
PROVIDERS: Emergency Provider Internal Medicine
DX: M25.552 Pain in left hip (principal)
CPT/HCPCS: 73502; 99283

== ENCOUNTER 2024-03-04 19:15 | Emergency (ER) | payer BC, SELFPAY ==
[2024-03-04 19:30] VITALS: BP 148/82; PULSE 82; RESP 18; TEMP 37; O2SAT 97; BMI 38.5
--- NOTE | 2024-03-04 20:25 | ED.ANXIETY ---
HPI - Anxiety General Chief Complaint: Anxiety Stated Complaint: needs anxiety meds and work note (does'nt have PCP Time Seen by Provider: 03/04/24 20:17 Source: patient Mode of arrival: ambulatory Limitations: no limitations History of Present Illness ED Provider: Heidy Sauceda APRN HPI narrative: 38-year-old male with history of anxiety presents the ER seeking a refill for his hydroxyzine. Patient reports he was seen here on January 31 given a prescription for hydroxyzine 25 mg. 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 The pharmacy would not refill it when he tried going there today. He reports feeling anxious at times. No depression, SI, HI, substance use. Currently working on establishing a primary care doctor. Reports increased stress at home. No physical complaints Related Data Previous Rx's ?Medication ?Instructions ?Recorded naproxen 500 mg tablet 500 mg PO BID PRN pain #20 tabs 03/25/21 hydroxyzine HCl 25 mg tablet 25 mg PO BID PRN anxiety #7 tabs 02/01/24 cyclobenzaprine 10 mg tablet 10 mg PO TID PRN muscle spasm 5 02/21/24 days #15 tabs naproxen 500 mg tablet 500 mg PO BID PRN pain 7 days #14 02/21/24 tabs hydroxyzine HCl 25 mg tablet 25 mg PO TID PRN anxiety #30 tabs 03/04/24 Allergies Allergy/AdvReac Type Severity Reaction Status Date / Time shellfish derived Allergy Anaphylaxis Verified 03/04/24 19:34 Review of Systems Review of Systems: Yes all other systems are reviewed and are negative Constitutional: Constitutional: Reports no additional constitutional complaints, Denies body ache(s), Denies chills, Denies fever(s), Denies headache(s) and Denies weakness Eyes: Eyes: Reports no additional eye complaints and Denies change in vision ENT: Reports system reviewed and no additional complaints, except as documented, Denies dizziness, Denies headache(s), Denies nasal congestion, Denies nasal discharge and Denies neck pain Cardiovascular: Cardiovascular: Reports no additional cardiovascular complaints, Denies chest pain, Denies leg edema and Denies dyspnea Respiratory: Respiratory: Reports no additional respiratory complaints, Denies cough and Denies dyspnea Gastrointestinal: Gastrointestinal: Reports no additional gastrointestinal complaints, Denies abdominal pain, Denies diarrhea, Denies nausea and Denies vomiting Genitourinary: Genitourinary: Denies urinary incontinence Musculoskeletal: Musculoskeletal: Reports no additional musculoskeletal complaints, Denies back pain, Denies arthralgias, Denies joint swelling, Denies neck pain, Denies numbness and Denies tingling Integumentary/Breasts: Skin/Breast: Reports system reviewed and no additional complaints, except as docu and Denies rash Neurologic: Reports system reviewed and no additional complaints, except as documented, Denies Abnormal speech present, Denies dizziness, Denies headache(s), Denies numbness, Denies tingling and Denies weakness Psychiatric: Psychiatric: Reports anxiety, Denies depression, Denies homicidal ideation and Denies suicidal ideation [facility] Past Medical History Attestation statement: The following information was validated with the patient. Source: old records reviewed and nursing notes reviewed Medical History Pre-diabetes Asthma Social History Social History Substance Use Type: Marijuana Advance Directives: No Advance Directives Information Provided: No Do you have a plan to hurt others: No Plan Physical Exam Vital Signs: Vital Signs: Last Vital Signs Temp 98.6 F 03/04/24 19:30 Pulse 82 03/04/24 19:30 Resp 18 03/04/24 19:30 BP 148/82 H 03/04/24 19:30 Pulse Ox 97 03/04/24 19:30 O2 Del Method Room Air 03/04/24 19:30 BMI result Body Mass Index 38.5 Const: General: cooperative, healthy appearing, comfortable and no acute distress Orientation/consciousness: patient oriented x3 Limitations: no limitations HEENT: Head: Yes normal to inspection Ears: hearing grossly normal bilaterally General nose exam: Normal external nose present Face and sinus: Yes normal facial exam Mouth: Normal oral and palatal mucosa present Throat: Yes posterior oropharynx normal Eyes: General: appearance normal, both eyes and all related structures Pupils: Equal, round and reactive pupils present Neck: Neck: Yes normal visual inspection Chest: Chest palpation & inspection: normal inspection of the chest Resp: Effort & Inspection: normal respiratory effort Auscultation: clear to auscultation bilaterally Cardio: Rate: regular rate Rhythm: regular rhythm Peripheral pulses: Peripheral pulses 2+ throughout GI: Inspection: Yes normal to inspection Palpation (GI): Soft to palpation and nontender Auscultation: normal bowel sounds Back/Spine/Pelvis: Thoracic/Lumbar Spine: thoracic and lumbar spine normal to inspection Skin: General skin exam: no rashes or lesions noted Neuro: General: patient oriented x3, no focal motor deficits and normal sensation to monofilament Cranial nerves: Yes Equal, round and reactive pupils present Cognition (Neuro): normal cognition Speech: No Abnormal speech present Gait exam (Neuro): Normal gait present Motor exam (neuro): 5/5 motor strength present throughout Extrem: General: Yes normal to inspection Medical Decision Making Medical Decision Making MDM Narrative: 38-year-old male with history of anxiety presents the ER seeking a refill for his hydroxyzine. Patient reports he was seen here on January 31 given a prescription for hydroxyzine 25 mg. 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 The pharmacy would not refill it when he tried going there today. He reports feeling anxious at times. No depression, SI, HI, substance use. Currently working on establishing a primary care doctor. Reports increased stress at home. No physical complaints No concern for acute ingestion or trauma. No SI or HI or safety concerns warranting a crisis evaluation. Will give prescription for hydroxyzine. Recommend patient continue with plan to follow up primary care doctor. Reviewed worrisome signs and symptoms of when to return to the emergency room. Comfortable plan for discharge home. Differential Diagnosis Differential Diagnoses: The differential diagnosis associated with the presentation includes Anxiety Admission/Observation Consideration of admission/observation: Escalation of care including admission/observation considered See above External Record Review External record reviewed: Primary care record and Outside ED record Discharge Plan Discharge Clinical Impression: Acute anxiety Patient Disposition: Home, Self-Care Instructions: Anxiety (ED) Prescriptions: New hydroxyzine HCl 25 mg tablet 25 mg PO TID PRN (Reason: anxiety) Qty: 30 0RF No Action naproxen 500 mg tablet 500 mg PO BID PRN (Reason: pain) Qty: 20 0RF naproxen 500 mg tablet 500 mg PO BID PRN (Reason: pain) 7 Days Qty: 14 0RF cyclobenzaprine 10 mg tablet 10 mg PO TID PRN (Reason: muscle spasm) 5 Days Qty: 15 0RF Rx Instructions: side effect is drowsiness. Do not take at work or while driving hydroxyzine HCl 25 mg tablet 25 mg PO BID PRN (Reason: anxiety) Qty: 7 0RF Stand Alone Forms: Work/School Release Print Language: Occitan
[2024-03-04 20:34] VITALS: BP 116/79; PULSE 74; RESP 20; TEMP 36.9; O2SAT 95
== END 2024-03-04 20:34 | disposition home or self-care (01) ==
PROVIDERS: Emergency Provider Emergency Medicine
DX: F41.1 Generalized anxiety disorder (principal); F43.0 Acute stress reaction
CPT/HCPCS: 99282

== ENCOUNTER 2024-05-23 08:58 | Emergency (ER) | payer BC, SELFPAY ==
[2024-05-23 09:16] VITALS: BP 106/63; PULSE 81; RESP 16; TEMP 36.9; O2SAT 98; BMI 38.6
[2024-05-23 10:39] VITALS: BP 120/84; PULSE 63; RESP 16; TEMP 36.7; O2SAT 93
--- NOTE | 2024-05-23 10:40 | ED.ANXIETY ---
HPI - Anxiety General Chief Complaint: Anxiety Stated Complaint: anxiety Time Seen by Provider: 05/23/24 10:25 Source: patient, RN notes reviewed and old records reviewed Mode of arrival: ambulatory History of Present Illness ED Provider: Mary Kay Melgar PA-C HPI narrative: 38-year-old male with a past medical history prediabetes, asthma, presenting to the ED complaining of increased anxiety, requesting refill of hydroxyzine and FMLA paperwork to be completed. Reports chronic anxiety, states does not currently have PCP or therapist/psychiatrist. Denies increased depression, SI/HI or illicit substance use. Related Data Previous Rx's ?Medication ?Instructions ?Recorded naproxen 500 mg tablet 500 mg PO BID PRN pain #20 tabs 03/25/21 hydroxyzine HCl 25 mg tablet 25 mg PO BID PRN anxiety #7 tabs 02/01/24 cyclobenzaprine 10 mg tablet 10 mg PO TID PRN muscle spasm 5 02/21/24 days #15 tabs naproxen 500 mg tablet 500 mg PO BID PRN pain 7 days #14 02/21/24 tabs hydroxyzine HCl 25 mg tablet 25 mg PO TID PRN anxiety #30 tabs 03/04/24 hydroxyzine HCl 25 mg tablet 25 mg PO TID PRN anxiety 3 days #9 05/23/24 tabs Allergies Allergy/AdvReac Type Severity Reaction Status Date / Time shellfish derived Allergy Anaphylaxis Verified 05/23/24 09:17 Review of Systems Review of Systems: Yes all other systems are reviewed and are negative Constitutional: Constitutional: Reports as per [facility] Past Medical History Attestation statement: The following information was validated with the patient. Source: old records reviewed Medical History Pre-diabetes Asthma Social History Social History Substance Use Type: Marijuana Advance Directives: No Advance Directives Information Provided: No Physical Exam Vital Signs: Vital Signs: Last Vital Signs Temp 98.0 F 05/23/24 11:07 Pulse 63 05/23/24 11:07 Resp 16 05/23/24 11:07 BP 120/84 05/23/24 11:07 Pulse Ox 93 05/23/24 11:07 O2 Del Method Room Air 05/23/24 11:07 BMI result Body Mass Index 38.6 Const: General: cooperative, healthy appearing and no acute distress Orientation/consciousness: patient oriented x3 Limitations: no limitations HEENT: Head: Yes normal to inspection and Yes atraumatic Ears: hearing grossly normal bilaterally General nose exam: Normal external nose present Face and sinus: Yes normal facial exam Eyes: General: appearance normal, both eyes and all related structures EOM: EOMs intact bilaterally Neck: Neck: Yes normal visual inspection and Yes no meningeal signs Resp: Effort & Inspection: normal respiratory effort and no respiratory distress Cardio: Rate: regular rate Skin: Rashes: no rashes Wounds: no wounds Neuro: General: patient oriented x3, gait normal, tone normal, moves all extremities, no meningeal signs, no focal motor deficits and CN's II-XI intact bilaterally Cranial nerves: Yes CN's II-XII intact bilaterally Gait exam (Neuro): Normal gait present Extrem: General: Yes normal to inspection Medications Administered Discontinued Medications Generic Name Dose Route Start Last Admin Trade Name Fuadq PRN Reason Stop Dose Admin Hydroxyzine HCl 25 mg 05/23/24 10:41 05/23/24 11:03 Hydroxyzine Hcl 25 Mg Tablet PO 05/23/24 10:42 25 mg ONCE ONE Administration Medical Decision Making Medical Decision Making MDM Narrative: 38-year-old male with a past medical history prediabetes, asthma, presenting to the ED complaining of increased anxiety, requesting refill of hydroxyzine and FMLA paperwork to be completed. On exam vital signs stable, NAD, nontoxic appearing, physical exam as noted above. Patient was seen and treated in our ED on 03/04/2024 for similar symptoms, had refill hydroxyzine at that time. Denies SI/HI. Discussed with patient he needs to follow-up with PCP, therapist/psychiatrist and work connection for requested documents and proper treatment. Will give small prescription of hydroxyzine for discharge Please refer to course for remaining clinical decision making, interpretation of labs/imaging results, and discussions with consultants and/or family members. Results discussed with patient including worrisome signs and symptoms and strict return precautions, and when to return to the emergency department. They verbalized understanding and feel safe for discharge at this time. Differential Diagnosis Differential Diagnoses: The differential diagnosis associated with the presentation includes As above Consult Healthcare Provider Management of the patient was discussed with: Behavioral [facility] Provider External Record Review External record reviewed: Inpatient record, Office record, Outpatient record, Prior outpatient labs, Prior outpatient radiology, Primary care record and Outside ED record Tests considered The following testing was considered but not selected: As above Chronic Conditions Patient?s care impacted by: Other Social Determinants Patient?s care significantly limited by Social Determinants of Health including: Inadequate housing and Problems related to primary support group Discharge Plan Discharge Clinical Impression: Acute anxiety Patient Disposition: Home, Self-Care Instructions: Anxiety (ED) Additional Instructions: Take hydroxyzine as needed for acute anxiety Please follow-up with work connection as well as establish care with a PCP and therapist/psychiatrist If you have any thoughts of hurting herself or others please return to the ED immediately Prescriptions: New hydroxyzine HCl 25 mg tablet 25 mg PO TID PRN (Reason: anxiety) 3 Days Qty: 9 0RF No Action naproxen 500 mg tablet 500 mg PO BID PRN (Reason: pain) Qty: 20 0RF naproxen 500 mg tablet 500 mg PO BID PRN (Reason: pain) 7 Days Qty: 14 0RF cyclobenzaprine 10 mg tablet 10 mg PO TID PRN (Reason: muscle spasm) 5 Days Qty: 15 0RF Rx Instructions: side effect is drowsiness. Do not take at work or while driving hydroxyzine HCl 25 mg tablet 25 mg PO TID PRN (Reason: anxiety) Qty: 30 0RF hydroxyzine HCl 25 mg tablet 25 mg PO BID PRN (Reason: anxiety) Qty: 7 0RF Referrals: [facility]Provider Group[facility] [facility]Provider Group[place] [facility] [facility] [place]Provider Group[place] [facility] Group] [facility] [Outside] Stand Alone Forms: Work/School Release Interventions: ED Discharge Assessment Last Done: 05/23/24 11:07 Discharge Date/Time: 05/23/24 11:07 Print Language: [place] Island[place]
[2024-05-23] MEDS: hydrOXYzine HCL 25 MG TABLET PO (11:03)
[2024-05-23 11:07] VITALS: BP 120/84; PULSE 63; RESP 16; TEMP 36.7; O2SAT 93
== END 2024-05-23 11:07 | disposition home or self-care (01) ==
PROVIDERS: Emergency Provider Emergency Medicine
DX: F41.9 Anxiety disorder, unspecified (principal)
CPT/HCPCS: 99283

== ENCOUNTER 2024-06-05 15:57 | Emergency (ER) | payer BC, SELFPAY ==
[2024-06-05 16:32] VITALS: BP 123/71; PULSE 85; RESP 16; TEMP 36.1; O2SAT 96; BMI 36.2
--- NOTE | 2024-06-05 16:40 | ED_ITS ---
HPI - Back Pain/Injury General Chief Complaint: Back Pain/Injury Stated Complaint: Back and hip pain Time Seen by Provider: 06/05/24 16:35 Source: patient Limitations: no limitations History of Present Illness ED Provider: Isis Graves PA-C HPI Narrative: 38-year-old male presents with left-sided low back pain times 2 days. 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 Pain originates in the left lumbar region and radiates to the left hip. Pain worse with bending over. Denies urinary retention, bowel incontinence, saddle anesthesia or weakness of lower extremities. Related Data Previous Rx's ?Medication ?Instructions ?Recorded naproxen 500 mg tablet 500 mg PO BID PRN pain #20 tabs 03/25/21 hydroxyzine HCl 25 mg tablet 25 mg PO BID PRN anxiety #7 tabs 02/01/24 cyclobenzaprine 10 mg tablet 10 mg PO TID PRN muscle spasm 5 02/21/24 days #15 tabs naproxen 500 mg tablet 500 mg PO BID PRN pain 7 days #14 02/21/24 tabs hydroxyzine HCl 25 mg tablet 25 mg PO TID PRN anxiety #30 tabs 03/04/24 hydroxyzine HCl 25 mg tablet 25 mg PO TID PRN anxiety 3 days #9 05/23/24 tabs meloxicam 15 mg tablet 15 mg PO DAILY #7 tabs 06/05/24 methocarbamol 750 mg tablet 1,500 mg (2 x 750 mg) PO QID PRN 06/05/24 pain #30 tabs Allergies Allergy/AdvReac Type Severity Reaction Status Date / Time shellfish derived Allergy Anaphylaxis Verified 06/05/24 16:39 Review of Systems Review of Systems: Yes all other systems are reviewed and are negative Constitutional: Constitutional: Denies fatigue and Denies fever(s) Gastrointestinal: Gastrointestinal: Denies change in bowel habits Genitourinary: Genitourinary: Denies urinary hesitancy Musculoskeletal: Musculoskeletal: Denies muscle weakness, Denies numbness and Denies tingling Neurologic: Denies numbness and Denies tingling Endocrine: Endocrine: Denies fatigue PMFSH Past Medical History Attestation statement: The following information was validated with the patient. Medical History Pre-diabetes Asthma Social History Social History Substance Use Type: Marijuana Advance Directives: No Advance Directives Information Provided: Yes Do you have a plan to hurt others: No Plan Physical Exam Vital Signs: Vital Signs: Last Vital Signs Temp 96.9 F 06/05/24 16:32 Pulse 85 06/05/24 16:32 Resp 16 06/05/24 16:32 BP 123/71 06/05/24 16:32 Pulse Ox 96 06/05/24 16:32 O2 Del Method Room Air 06/05/24 16:32 BMI result Body Mass Index 36.2 Const: Other: Alert, well in appearance Orientation/consciousness: patient oriented x3 Resp: Other: Nonlabored respiration Cardio: Other: Normal peripheral perfusion Back/Spine/Pelvis: Other: Limited range of motion and forward bend only Skin: Other: Warm dry no rash Neuro: General: patient oriented x3, no focal motor deficits and CN's II-XI intact bilaterally Extrem: Other: Strength 5/5 bilateral lower extremities Psych: Other: Calm cooperative Medical Decision Making Medical Decision Making MDM Narrative: 38-year-old male presents with left-sided low back pain times 2 days. 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 Pain originates in the left lumbar region and radiates to the left hip. Pain worse with bending over. Denies urinary retention, bowel incontinence, saddle anesthesia or weakness of lower extremities. No chronic issues History: Per patient I have considered the following differential diagnoses: Lumbar radiculopathy, lumbar strain, cauda equina, epidural abscess Plan: The patient here with simple lumbar strain, without radicular symptoms. He has no red flag signs symptoms concerning for cord compression, he has no risk factors for epidural abscess. We will send with a muscle relaxant and an anti-inflammatory, he needs to establish primary care. There was no indication for labs or imaging. Discharge Plan Discharge Clinical Impression: Lumbar strain Patient Disposition: Home, Self-Care Instructions: Low Back Strain (ED) Additional Instructions: You are being treated for lumbar strain. See home care instructions. Use the meloxicam as directed, this is an anti-inflammatory, take it with food. Use the methocarbamol, this is a muscle relaxant, as needed for additional pain. To note this medication will cause drowsiness, you can not drive or operate machinery while taking the medication. You need to establish primary care, you were given resources while being registered here in the emergency department. Prescriptions: New meloxicam 15 mg tablet 15 mg PO DAILY Qty: 7 0RF methocarbamol 750 mg tablet 1,500 mg PO QID PRN (Reason: pain) Qty: 30 0RF No Action naproxen 500 mg tablet 500 mg PO BID PRN (Reason: pain) Qty: 20 0RF naproxen 500 mg tablet 500 mg PO BID PRN (Reason: pain) 7 Days Qty: 14 0RF cyclobenzaprine 10 mg tablet 10 mg PO TID PRN (Reason: muscle spasm) 5 Days Qty: 15 0RF Rx Instructions: side effect is drowsiness. Do not take at work or while driving hydroxyzine HCl 25 mg tablet 25 mg PO TID PRN (Reason: anxiety) Qty: 30 0RF hydroxyzine HCl 25 mg tablet 25 mg PO BID PRN (Reason: anxiety) Qty: 7 0RF hydroxyzine HCl 25 mg tablet 25 mg PO TID PRN (Reason: anxiety) 3 Days Qty: 9 0RF Stand Alone Forms: Work/School Release Print Language: Slovak
== END 2024-06-05 16:54 | disposition home or self-care (01) ==
PROVIDERS: Emergency Provider Emergency Medicine
DX: S39.012A Strain of muscle, fascia and tendon of lower back, initial encounter (principal); X50.9XXA Other and unspecified overexertion or strenuous movements or postures, initial encounter; Y93.89 Activity, other specified; Y92.59 Other trade areas as the place of occurrence of the external cause; Y99.0 Civilian activity done for income or pay
CPT/HCPCS: 99281; 99283